=== PATIENT | female | born 1990 | race Caucasian/White ===

== ENCOUNTER 2025-07-25 15:24 | Emergency (ER) | payer OTHER, SELFPAY ==
--- NOTE | ~2025-07-25 | XR_ITS ---
CLINICAL HISTORY: rt ankle pain 2 view right ankle Comparison: None provided Findings: Bones intact. No dislocations. No radiopaque foreign body. IMPRESSION: 1. No acute fracture. This document has been electronically signed by: Woo Veliz MD on 07/25/2025 18:24:05
--- NOTE | ~2025-07-25 | CT_ITS ---
CLINICAL HISTORY: fall off deck CT cervical spine without contrast Comparison: None provided Findings: Normal vertebral body alignment. No acute fractures or dislocations. Visualized intracranial contents are unremarkable. Soft tissues of the neck are normal. No consolidation or effusion at the lung apices. IMPRESSION: No acute findings. This document has been electronically signed by: Woo Veliz MD on 07/25/2025 17:07:01
--- NOTE | ~2025-07-25 | XR_ITS ---
CLINICAL HISTORY: lt ankle pain 3 view left ankle Comparison: None provided Findings: No acute fractures. Ankle mortise intact. Soft tissue swelling over the lateral malleolus. Small ankle joint effusion. No radiopaque foreign body. IMPRESSION: No acute fracture. Soft tissue swelling over the lateral malleolus. Small ankle joint effusion. This document has been electronically signed by: Woo Veliz MD on 07/25/2025 18:15:07
--- NOTE | ~2025-07-25 | XR_ITS ---
CLINICAL HISTORY: fall off deck landed on heels 2 view right calcaneus Comparison: None provided Findings: Bones intact. No dislocations. Small ankle joint effusion. No erosions. No radiopaque foreign body. IMPRESSION: No acute fracture. Small ankle joint effusion. This document has been electronically signed by: Woo Veliz MD on 07/25/2025 18:13:44
--- NOTE | ~2025-07-25 | CT_ITS ---
CLINICAL HISTORY: fall off deck CT head without contrast Comparison: None provided Findings: No intra-axial mass, midline shift, hydrocephalus, or acute hemorrhage. Estrada-white matter differentiation is preserved. There is no sinus or mastoid fluid. The orbits are within normal limits. There is no acute fracture. IMPRESSION: 1. No acute intracranial findings. This document has been electronically signed by: Woo Veliz MD on 07/25/2025 17:13:26
--- NOTE | ~2025-07-25 | XR_ITS ---
CLINICAL HISTORY: fall off deck landed on heels 3 views lumbar spine Comparison: None provided Findings: Normal alignment. No acute fractures or dislocation. No significant degenerative change. IMPRESSION: No acute findings. This document has been electronically signed by: Woo Veliz MD on 07/25/2025 18:22:35
--- NOTE | ~2025-07-25 | XR_ITS ---
CLINICAL HISTORY: fall off deck landed on heels 1 view left calcaneus Comparison: None provided Findings: Bones intact. No dislocations. No erosions. No radiopaque foreign body. IMPRESSION: 1. No acute findings This document has been electronically signed by: Woo Veliz MD on 07/25/2025 18:18:55
--- NOTE | ~2025-07-25 | XR_ITS ---
CLINICAL HISTORY: fall off deck landed on heels 2 view right tibia-fibula Comparison: None provided Findings No fractures or dislocations. No joint effusion. No significant arthritic change. No radiopaque foreign body. IMPRESSION: 1. Normal right tibia-fibula This document has been electronically signed by: Woo Veliz MD on 07/25/2025 18:24:48
--- NOTE | ~2025-07-25 | XR_ITS ---
CLINICAL HISTORY: fall off deck landed on heels 2 view left tibia-fibula Comparison: None provided Findings No fractures or dislocations. No significant arthritic change. No radiopaque foreign body. IMPRESSION: 1. Normal left tibia-fibula This document has been electronically signed by: Woo Veliz MD on 07/25/2025 18:19:14
--- NOTE | ~2025-07-25 | CT_ITS ---
CLINICAL HISTORY: abd pain sp fall CT abdomen and pelvis with contrast Comparison: None provided Findings: No consolidation or effusion. The gallbladder and solid organs are within normal limits. No renal stones. No bowel obstruction, pneumoperitoneum, or pneumatosis. Probable exophytic fibroid in the right uterine fundus. Distended urinary bladder without wall thickening. Pelvic organs are otherwise within normal limits. The bones are intact. IMPRESSION: 1. No acute intraabdominal or pelvic findings. 2. Probable exophytic fibroid in the right uterine fundus. 3. Distended urinary bladder without wall thickening. This document has been electronically signed by: Woo Vleiz MD on 07/25/2025 17:13:21
--- NOTE | ~2025-07-25 | CT_ITS ---
CLINICAL HISTORY: fall >[address] chest with contrast Comparison: None provided Findings: The heart is normal size. The visualized thyroid and mediastinum are unremarkable. No consolidation or effusion. The upper abdomen is unremarkable. No acute fractures. IMPRESSION: 1. Unremarkable chest CT. This document has been electronically signed by: Woo Veliz MD on 07/25/2025 17:20:15
[2025-07-25 15:40] VITALS: BP 146/90; PULSE 103; RESP 18; TEMP 36.8; O2SAT 99; BMI 31.7
--- NOTE | 2025-07-25 15:40 | ED_ITS ---
HPI - General Adult General Chief complaint: Fall Stated complaint: dizziness (fell off deck) Time Seen by Provider: 07/25/25 15:47 Source: patient and family (mother ) Mode of arrival: ambulatory Limitations: no limitations History of Present Illness ED Provider: KATELYN Barnhart HPI narrative: This is a 35-year-old female presenting to the emergency department status post fall from a second-story of the home, patient reports she was standing on a deck shaking a blanket over the railing when suddenly the railing fell patient fell down landing on her lower extremities and left side. She states she is not experiencing any pain however slight discomfort in her left ankle. She did not hit her head or lose consciousness. She is not on blood thinners. She feels like she is still in shock from what happened. She does report slight lightheadedness. She denies preceding symptoms to fall. Denies chest pain, shortness of breath, nausea, vomiting, abdominal pain, headache, vision changes, weakness. GCS15 Related Data Previous Rx's ?Medication ?Instructions ?Recorded methocarbamol 750 mg tablet 1,500 mg (2 x 750 mg) PO Q 8H #24 07/25/25 tabs Allergies Allergy/AdvReac Type Severity Reaction Status Date / Time No Known Allergies Allergy Verified 07/25/25 15:44 Review of Systems 2 Review of Systems: Yes all other systems are reviewed and are negative PMFSH Past Medical History Attestation statement: The following information was validated with the patient. Source: old records reviewed and nursing notes reviewed Social History Social History Smoked in Last 30 Days: No Use of substances other than those prescribed or required for medical reasons: No Advance Directives: No Advance Directives Information Provided: No Patient : No Physical Exam ED Exam Exam: Appearance: Alert.? Oriented X3.? No acute distress.? Head: Normocephalic, atraumatic, no step-offs or deformities Eyes: Pupils equal, round and reactive to light.? ENT: Pharynx normal.? Neck: Normal inspection.?In cervical collar no c spine tenderness on plapation CVS: Normal heart rate and rhythm.? Pulses normal.? Respiratory: No respiratory distress.? Breath sounds normal.? Abdomen: Soft and nontender.? Skin: Skin warm and dry.? Normal skin color.? Normal skin turgor.? Extremities: No lower extremity edema.? No calf ttp. 5/5 strength to bilateral upper and lower extremities + there is ecchymosis and swelling noted overlying the left medial and lateral portions of the ankle. Back: No midline tenderness, no C-spine tenderness, full range of motion, no CVA tenderness bilaterally Neuro: Oriented X 3.? No motor deficit.? No sensory deficit. CN 2-12 intact . Normal [id number]. Vital Signs: Vital Signs - 24 hr 07/25/25 15:40 Temperature 98.3 F Pulse Rate 103 H Respiratory Rate 18 Blood Pressure 146/90 H Pulse Oximetry 99 Oxygen Delivery Method Room Air BMI result Body Mass Index 31.7 vss Course Course Course Narrative: This is a Rapid Medical Examination (RME) performed by Leticia Arriaga PA-C in triage. Full HPI, ROS, assessment and treatment plan per primary provider in the Main ED. Hx: 35 yo F here for eval s/p fall off two story deck [employer]. landed on b/l heels and slid to her side. sat on the ground 5 mins and was able to stay up. does not believe her head hit the ground. reports feeling dizzy. admits to b/l heel and lower leg pain. PE/vitals: placed in c collar - director learning and development aware, patient to be brought back to main ed bed. Plan: imaging Reevaluation(s) Reevaluation #1: CT chest unremarkable. CT head and cervical spine with no acute findings. Patient's cervical collar will be cleared at this time. CT abdomen and pelvis with no acute findings. Patient's x-rays are still pending. Time: 17:33 Reevaluation #2: Sign out to Bren ZEPEDA Reevaluation #3: I Karma Adams PA-C if accepted care of the patient had signed out pending imaging and final disposition Right Ankle x-ray:Findings: Bones intact. No dislocations. No radiopaque foreign body. IMPRESSION: 1. No acute fracture. Right tib-fib x-ray:2 view right tibia-fibula Comparison: None provided Findings No fractures or dislocations. No joint effusion. No significant arthritic change. No radiopaque foreign body. IMPRESSION: 1. Normal right tibia-fibula X-ray lumbar spine:Findings: Normal alignment. No acute fractures or dislocation. No significant degenerative change. IMPRESSION: No acute findings. Left tib-fib x-ray:2 view left tibia-fibula Comparison: None provided Findings No fractures or dislocations. No significant arthritic change. No radiopaque foreign body. IMPRESSION: 1. Normal left tibia-fibula Left calcaneal x-ray:1 view left calcaneus Comparison: None provided Findings: Bones intact. No dislocations. No erosions. No radiopaque foreign body. IMPRESSION: 1. No acute findings Left ankle x-ray:3 view left ankle Comparison: None provided Findings: No acute fractures. Ankle mortise intact. Soft tissue swelling over the lateral malleolus. Small ankle joint effusion. No radiopaque foreign body. IMPRESSION: No acute fracture. Soft tissue swelling over the lateral malleolus. Small ankle joint effusion. Right calcaneal x-ray:2 view right calcaneus Comparison: None provided Findings: Bones intact. No dislocations. Small ankle joint effusion. No erosions. No radiopaque foreign body. IMPRESSION: No acute fracture. Small ankle joint effusion. I offered the patient crutches and a short walking boot for her sprain, she declines, she states she really is not having a great deal of discomfort in his completely ambulatory without any limping. Sending with a muscle relaxant, I foresee her having delayed onset musculoskeletal pain. Medications Administered Discontinued Medications Generic Name Dose Route Start Last Admin Trade Name Domingoq PRN Reason Stop Dose Admin Iohexol 100 ml 07/25/25 16:15 07/25/25 16:16 Iohexol 350 Mg/Ml 100 Ml Infus..Btl IV 07/25/25 16:16 85 ml ONCE ONE Administration Medical Decision Making Medical Decision Making MDM Narrative: 35-year-old female presents status post fall from second-story deck around 10 ft falling on her lower extremities and left side. Slight complaints of left ankle pain. Otherwise patient feels like she still in shock from this. Physical exam slight ecchymosis to the medial and lateral aspects of left ankle with overlying swelling. Neurological assessment nonfocal. Breath sounds clear. Regular rate and rhythm. Abdomen soft nontender nondistended History and physical exam concerning for possible fracture dislocation of left ankle. Will rule out calcaneal fractures. No pain to knees low suspicion for knee fracture dislocation. Unlikely hip fracture dislocation however due to mechanism of injury patient was placed in a cervical collar and she will have a isaac scan CTA head, neck, chest, abdomen and pelvis. Unlikely metabolic derangements, dysrhythmia. Plan labs, EKG Differential Diagnosis Differential Diagnoses: The differential diagnosis associated with the presentation includes (History and physical exam concerning for possible fracture dislocation of left ankle. Will rule out calcaneal fractures. No pain to knees low suspicion for knee fracture dislocation. Unlikely hip fracture dislocation however due to mechanism of injury patient was placed in a cervical collar and s) Admission/Observation Consideration of admission/observation: Escalation of care including admission/observation considered Lab Data MDM Lab Attestation statement: I reviewed the patient's lab results. 07/25/25 16:02 07/25/25 16:02 Labs: Lab Results 07/25/25 Range/Units 16:02 WBC 9.3 (4.8-10.8) X10*3/uL RBC 4.81 (4.20-5.50) X10*6/uL Hgb 14.3 (12.0-16.0) g/dl Hct 40.6 (37.0-47.0) % MCV 84.4 (80.0-98.0) fL MCH 29.7 (27.0-33.0) pg MCHC 35.2 H (31.0-35.0) g/dl RDW 14.7 (11.0-16.0) % Plt Count 303 (160-400) X10*3/uL MPV 9.8 (9.4-12.3) fL Immature Gran % (Auto) 0.3 (0.0-0.4) % Neut % (Auto) 72.5 (45-73) % Lymph % (Auto) 19.8 L (20-40) % Stanley % (Auto) 6.4 (2-11) % Eos % (Auto) 0.4 (0-4) % Baso % (Auto) 0.6 (0-2) % Lymph # (Auto) 1.8 (1.2-4.9) X10*3/uL Stanley # (Auto) 0.6 (0.1-1.2) X10*3/uL Eos # (Auto) 0.0 (0.0-0.4) X10*3/uL Baso # (Auto) 0.1 (0.0-0.2) X10*3/uL Abs Immat Gran (auto) 0.03 (0.00-0.03) X10*3/uL Absolute Neuts (auto) 6.7 (2.0-8.3) x10*3/uL Absolute Nucleated RBC 0.000 (0.0-0.012) X10*3/uL Nucleated RBC % (auto) 0.0 (0.0-0.2) /100WBC Sodium 138 (135-145) mmol/L Potassium 4.1 (3.3-5.1) mmol/L Chloride 106 (96-108) mmol/L Carbon Dioxide 20 L (22-29) mmol/L Anion Gap 16 (12-20) BUN 17 H (9-16) mg/dL Creatinine 0.64 (0.5-1.4) mg/dL Estim Creat Clear Calc 116.8 Estimated GFR > 60 Random Glucose 98 (60-115) mg/dL Calcium 9.7 (8.4-10.2) mg/dL Total Bilirubin 0.3 (0.0-1.0) mg/dL AST 28 (5-31) U/L ALT 15 (0-31) U/L Alkaline Phosphatase 65 (39-117) U/L Total Protein 7.5 (6.5-8.0) g/dL Albumin 4.5 (3.5-5.0) g/dL Beta HCG, Quant < 2 mIU/mL Independent Interpretation I performed an independent interpretation of an: EKG (Normal sinus rhythm Normal ECG No previous ECGs available), Plain X-Ray and CT Scan Interpretation: CT chest unremarkable. CT head and neck no acute findings. CT abdomen pelvis with no acute intra-abdominal or pelvic findings. Radiology Impression Discussion of test interpretation with radiology: I have reviewed the radiologist's reading. Chronic Conditions Denies Critical Care Time Critical Care Time Critical Care Time: No Discharge Plan Discharge Clinical Impression: Fall from balcony, Acute left ankle pain Patient Disposition: Home, Self-Care Instructions: Arthralgia (ED) Additional Instructions: Take your medications as prescribed. If you were prescribed antibiotics today, it is important that you take your medication to their entirety, do not skip any doses, do not finish them early. Follow-up with your primary care provider this week. Return to the emergency department with new or worsening symptoms. Such as fevers, chills, chest pain, shortness of breath, nausea, vomiting, dizziness, headache, vision changes, lethargy In case of emergency call [address] chest with contrast Comparison: None provided Findings: The heart is normal size. The visualized thyroid and mediastinum are unremarkable. No consolidation or effusion. The upper abdomen is unremarkable. No acute fractures. IMPRESSION: 1. Unremarkable chest CT. CT head without contrast Comparison: None provided Findings: No intra-axial mass, midline shift, hydrocephalus, or acute hemorrhage. Estrada-white matter differentiation is preserved. There is no sinus or mastoid fluid. The orbits are within normal limits. There is no acute fracture. IMPRESSION: 1. No acute intracranial findings. CT abdomen and pelvis with contrast Comparison: None provided Findings: No consolidation or effusion. The gallbladder and solid organs are within normal limits. No renal stones. No bowel obstruction, pneumoperitoneum, or pneumatosis. Probable exophytic fibroid in the right uterine fundus. Distended urinary bladder without wall thickening. Pelvic organs are otherwise within normal limits. The bones are intact. IMPRESSION: 1. No acute intraabdominal or pelvic findings. 2. Probable exophytic fibroid in the right uterine fundus. 3. Distended urinary bladder without wall thickening. CT cervical spine without contrast Comparison: None provided Findings: Normal vertebral body alignment. No acute fractures or dislocations. Visualized intracranial contents are unremarkable. Soft tissues of the neck are normal. No consolidation or effusion at the lung apices. IMPRESSION: No acute findings. All of the x-rays were normal as well. Use the methocarbamol as needed for pain, this is a muscle relaxant, it will cause drowsiness, do not drive or operate machinery while taking the medication. You should also be using an anti-inflammatory such as ibuprofen 600 mg taken every 6 hours with food. Follow up with primary care as needed Prescriptions: New methocarbamol 750 mg tablet 1,500 mg PO Q8H Qty: 24 0RF Stand Alone Forms: Work/School Release Print Language: Slovenian
[2025-07-25 16:05] LABS: MANUAL DIFF FLAG NO
[2025-07-25 16:07] LABS: Hematocrit 40.6 % (37.0-47.0); Hemoglobin 14.3 g/dl (12.0-16.0); Imm Gran Abs Auto 0.03 X10*3/uL (0.00-0.03); Imm Gran Pct Auto 0.3 % (0.0-0.4); Lymphocytes Absolute Auto 1.8 X10*3/uL (1.2-4.9); Mean Corpuscular HGB Conc 35.2 g/dl (31.0-35.0); Mean Corpuscular Hemoglobin 29.7 pg (27.0-33.0); Mean Corpuscular Volume 84.4 fL (80.0-98.0); NRBC Abs Auto 0.000 X10*3/uL (0.0-0.012); NRBC Pct Auto 0.0 /100WBC (0.0-0.2); Platelet Count 303 X10*3/uL (160-400); Red Blood Count 4.81 X10*6/uL (4.20-5.50); White Blood Count 9.3 X10*3/uL (4.8-10.8)
[2025-07-25] MEDS: iohexoL 350 MG/ML 100 ML INFUS..BTL IV (16:16)
--- OUTSIDE RECORDS SUMMARY | 2025-07-25 16:36 | XMS_ITS | Clinical Summary ---
Author Organization [facility] [address] [facility] [address] Address [address] [place] [address] Phone Care Team Providers Care Binding Cutter Name Role Phone Stephany Schofield MD Primary Care Prov ider Allergies Active Allergy Reactions Criticality Noted Date Comments Other 03/22/2016 Medications MAGNESIUM GLYCINATE ORAL Take 120 mg by mouth 2 times daily. Active multivitamin (MULTIPLE VITAMINS ORAL) Take 200 mg by mouth 4 times daily. Active OMEGA-3 FATTY ACIDS ORAL Take by mouth. Acti ve GENERIC EXTERNAL MEDICATION [id number] Calcium [place] Lopez Active Lactobacillus acidophilus (PROBIOTIC ORAL) Take 1 Tablet by mouth daily. Active itraconazole (SPORANOX) 100 mg capsule Take 1 capsule (100 mg total) by mouth 2 (two) times a day. as directed 4 Active FLUoxetine (PROzac) 20 mg capsule TAKE 1 CAPSULE BY MOUTH 1 TIME EACH DAY. 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 Chronic neck pain 03/28/2023 Macromastia 03/28/2023 IUD (intrauterine device) in place 06/22/2019 Recurrent major depressive d isorder, in partial remission (CMS/HCC V24) 09/06/2016 Allergic rhinitis 03/01/2015 Immunizations Name Administration Dates Next Due Influenza Quadravalent, MDCK , 0.5ml, preservative free (Flucelvax) 6mo and older 09/30/2023,02/12/2023,08/31/2021,2017 Influenza Quadravalent, MDCK , 0.5ml, with preservative (Flucelvax) 6mo and older 09/02/2017 Influenza Quadrivalent, 0.5m l, preservative free (Fluarix; FluLaval; Fluzone) ages 6mo and older (Afluria) 3yo and older 08/31/2019 Influenza trivalent, MDCK, 0 .5mL, preservative free (Flucelvax) 6mo and older 09/30/2024 Influenza trivalent, with preservative (Fluzone; Afluria) 6mo and older 08/31/2019,09/06/2016,09/01/2015 Influenza, Unspecified 08/31/2021 Tdap Tetanus diptheria acell ular pertussis (Boostrix; Adacel) 7yo and older 09/01/2015 Surgical History Surgery Date Site/Laterality Comments ADENOIDECTOMY 2000 Bilateral PROCEDURE: HISTORICAL ADENOIDECTOMY OTHER SURGICAL HISTORY 05/01/2023 PROCEDURE: AL INDUCED DILATION AND CURETTAGE Medical History Medical History Date Comments IUD (intrauterine device) in place 06/22/2019 DX:IUD (intrauterine device) in place Depressive disorder DX:Depressiv e disorder ADHD (attention deficit hype ractivity disorder) November 2022 Anxiety 2006 Headache Disease of thyroid gland February 2023 Moderate mixed hyperlipidemi a not requiring statin therapy 04/21/2025 Family History Medical History Relation Name Comments No Known Problems Brother Arthritis Father Alexis Heart attack Father Alexis age 40 Heart disease Father Alexis Heart failure Father Alexis Other: cardiac amyloidosis Father Alexis Stroke Father Alexis Pancreatic cancer Father's Brother Ed Depression Maternal Grandfather Matti Coronary artery disease Maternal Grandmother Shanna CABG Dementia Maternal Grandmother Shanna Arthritis Mother [place] Depression Mother [place] Alcohol abuse Paternal Grandfather Alexis Alcohol abuse Paternal Grandmother Laila Relation Name Status Comments Brother Alive Father Alexis (Age 73) Father's Brother Ed Maternal Grandfather Matti Maternal Grandmother Shanna Mother [place] Alive Paternal Grandfather Alexis Paternal Grandmother Laila Social History Tobacco Use Types Packs/Day Years Used Date Smoking Tobacco: Never Smokeless Tobacco: Never Tobacco Cessation:Counseling Given: Not Answered Comments:Never smoked Alcohol Use Standard Drinks/Week Comments Yes 2 (1 standard drink = 0.6 oz pur e alcohol) Housing Instability Answer Date Recorde d Are you worried that in the next 2 months you may not have stable housing? No 03/31/2025 Food Access & Nutrition Answer Date Rec orded Do you have access to a vari ety of food including fruits and vegetables? Yes 03/31/2025 Access to Healthcare Answer Date Record ed Within the last 3 months, ho w many times did you visit the emergency department for your medical care? 0 03/31/2025 Health Literacy Answer Date Recorded How often do you need to hav e someone help you when you read instructions, pamphlets, or other written material from your doctor or pharmacy? Never 03/31/2025 Caregiver: How often do you need to have someone help you when you read instructions, pamphlets, or other written material from your doctor or pharmacy? Not on file 03/31/2025 Financial Risk Answer Date Recorded How hard is it for you to pa y for the very basics like food, housing, medical care, and air conditioning / heating? Not very hard 03/31/2025 Transportation Answer Date Recorded Has the lack of transportati on kept you from meetings, work, or from getting things needed for daily living? No Has the lack of transportati on kept you from medical appointments or from getting medications? No 03/31/2025 Social Isolation Answer Date Recorded How often do you feel lonely or isolated from th ose around you? Never 03/31/2025 Food Risk Answer Date Recorded Within the past 12 months we worried whether our food would run out before we got money to buy more. Never true 03/31/2025 Within the past 12 months th e food we bought just didn't last and we didn't have money to get more. Never true 03/31/2025 Dependent Care Answer Date Recorded Do you need help finding or paying for care for your loved ones. For example, child and family services worker or elderly care for an older adult? No 03/31/2025 Education Answer Date Recorded Do you think completing more education or training, like finishing a GED, going to college, or learning a trade, would be helpful for you? No 03/31/2025 Employment and Income Answer Date Recor ded During the last four weeks, have you been actively looking for work? No 03/31/2025 Living Situation Answer Date Recorded What is your living situation? 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 Not on file Not on file Obstetrics History Last Filed Vital Signs Vital Sign Reading Time Taken Comments Blood Pressure 103/75 03/31/2025 10:31 AM EDT Pulse 68 03/31/2025 10:31 AM EDT Temperature 37.1 C (98.7 F) 03/31/2025 10:31 AM EDT Respiratory Rate - - Oxygen Saturation - - Inhaled Oxygen Concentration - - Weight 79.4 kg (175 lb) 03/31/2025 10:31 AM EDT Height 157.5 cm (5' 2 ) 03/31/2025 10:31 AM EDT Body Mass Index 32.01 03/31/2025 10:31 AM EDT Plan of Treatment Upcoming Encounters Date Type Department Care Team (Late st Contact Info) Description 10/04/2025 9:30 AM EST Office Visit Adult Medicine [facility] [address] [place] [address] Ankush Chacon PA [address] [place] [address] Health Maintenance Due Date Last Done Comments Hepatitis C Screening 11/03/2022 COVID-19 Vaccine ( season) 2024 04/14/2021, 03/24/2021 Influenza Vaccine (#1) 2025 , 09/30/2023, 02/12/2023, Additional history exists DTaP,Tdap,and Td Vaccines (2 - Td or Tdap) 09/01/2025 09/01/2015 Cervical Cancer Screening: HPV 03/07/2026 03/07/2021 Social Influencers of Health Screening 03/31/2026 03/31/2025 Cholesterol Screening (Lipid Panel) 10/02/2028 10/02/2023 Depression Screening Completed 03/30/2025, 03/30/20 24 HIB Vaccines Aged Out No longer eligi ble based on patient's age to complete this topic HIV Screening Discontinued HPV Vaccines Aged Out No longer eligi ble based on patient's age to complete this topic Hepatitis A Vaccines Aged Out No long er eligible based on patient's age to complete this topic Hepatitis B Vaccines Discontinued IPV Vaccines Aged Out No longer eligi ble based on patient's age to complete this topic MMR Vaccines Aged Out No longer eligi ble based on patient's age to complete this topic Meningococcal ACWY Vaccine Aged Out N o longer eligible based on patient's age to complete this topic Meningococcal B Vaccine Aged Out No l onger eligible based on patient's age to complete this topic Pneumococcal Vaccine: Pediatrics (0 to 5 Years) and At-Risk Patients (6 to 49 Years) Aged Out No longer eligible based on patient's age to complete this topic RSV Immunization Patients Under 20 months Aged Out No longer eligible based on patient's age to complete this topic Varicella Vaccines Aged Out No longer eligible based on patient's age to complete this topic Procedures Procedure Name Priority Date/Time Associated Diagnosis Comments DEPRESSION SCREENING Routine 03/30/2024 LIPID PANEL Routine 10/02/2023 HPV Routine 03/07/2021 from Last 3 Months or Most Recently Relevant to Health Maintenance Results * Depression Screening (03/30/2024) Pathologist [facility] Depression Screening Abstracted [facility] Provider MD HEALTH MAINTENANCE Final Result * (ABNORMAL) Lipid panel (10/02/2023) Pathologist [facility] LDL/HDL Ratio 3 0 - 4 Triglycerides 109 0 - 150 mg/dL Cholesterol 219(A) 0 - 200 mg/dL HDL 71 >=40 mg/dL LDL Cholesterol 127(A) 0 - 100 mg/dL Blood Venous blood specimen / Unknown us Historical Provider LAB BLOOD ORDERABLES Anna l Result * Cervical Cancer Screening: HPV (03/07/2021) Cervical Cancer Screening: HPV Negative, Abstracted Historical Provider HEALTH MAINTENANCE Final Result from Last 3 Months or Most Recently Relevant to Health Maintenance Insurance [facility] Care Teams Binding Cutter Relationship Specialty Start Date End Date Stephany Schofield MD [address] [place] [id number] PCP - General Internal Medicine 04/14/21
[2025-07-25 16:40] LABS: Alanine Aminotransferase 15 U/L (0-31); Albumin Level 4.5 g/dL (3.5-5.0); Alkaline Phosphatase 65 U/L (39-117); Anion Gap 16 (12-20); Aspartate Amino Transferase 28 U/L (5-31); Blood Urea Nitrogen 17 mg/dL (9-16); Calcium 9.7 mg/dL (8.4-10.2); Carbon Dioxide 20 mmol/L (22-29); Chloride 106 mmol/L (96-108); Creatinine Clr Calc Pharmacy 116.8; Estimated Glomerular Filt Rate > 60; Potassium 4.1 mmol/L (3.3-5.1); Sodium 138 mmol/L (135-145); Total Protein 7.5 g/dL (6.5-8.0)
--- NOTE | 2025-07-25 16:52 | ECG_ITS ---
Test Reason : DIZZINESS Blood Pressure : */* mmHG Vent. Rate : 71 BPM Atrial Rate : 71 BPM P-R Int : 152 ms QRS Dur : 78 ms QT Int : 404 ms P-R-T Axes : 24 -8 14 degrees QTcB Int : 439 ms Normal sinus rhythm Normal ECG No previous ECGs available Referred By: Karin Barnhart Electronically Signed By: LUIS CRUMP MD
--- NOTE | 2025-07-25 17:35 | PC.NURSE ---
Pt's radiology studies WNL; c collar removed/c spine cleared at this time; pt ambulatory to BR with steady, independent gait
[2025-07-25 20:25] VITALS: BP 113/78; PULSE 69; RESP 18; TEMP 36.7; O2SAT 98
[2025-07-25 20:30] VITALS: BP 113/78; PULSE 69; RESP 18; TEMP 36.7; O2SAT 98
== END 2025-07-25 20:32 | disposition home or self-care (01) ==
PROVIDERS: Physician Assistant Medical; Emergency Provider Emergency Medicine; PCP Internal Medicine
DX: M25.572 Pain in left ankle and joints of left foot (principal); W17.89XA Other fall from one level to another, initial encounter; Y93.E9 Activity, other interior property and clothing maintenance; Y92.098 Other place in other non-institutional residence as the place of occurrence of the external cause; Y99.8 Other external cause status
CPT/HCPCS: 36415; 70450; 71260; 72100; 72125; 73590; 73610; 73650; 74177; 80053; 84702; 85025; 93005; 99285; Q9967

== ENCOUNTER → 2025-07-25 15:42 | Outpatient (BNV) | payer OTHER, SELFPAY | PROVIDERS: Emergency Provider Emergency Medicine; PCP Internal Medicine; Visit Provider Radiology Diagnostic Radiology | DX: D25.9 Leiomyoma of uterus, unspecified (principal); S29.9XXA Unspecified injury of thorax, initial encounter; M54.2 Cervicalgia; R42 Dizziness and giddiness; M54.50 Low back pain, unspecified; M25.571 Pain in right ankle and joints of right foot; M25.472 Effusion, left ankle; M79.672 Pain in left foot; M79.662 Pain in left lower leg; M79.671 Pain in right foot; M79.661 Pain in right lower leg | CPT/HCPCS: 70450; 71260; 72100; 72125; 73590; 73610; 73650; 74177 ==

== ENCOUNTER → 2025-07-25 16:52 | Outpatient (BNV) | payer OTHER, SELFPAY | PROVIDERS: Emergency Provider Emergency Medicine; PCP Internal Medicine; Visit Provider Internal Medicine Cardiovascular Disease | DX: R42 Dizziness and giddiness (principal) | CPT/HCPCS: 93010 ==